=== PATIENT | female | born 1990 | race Caucasian/White ===

== ENCOUNTER 2022-07-19 00:47 | Emergency (ER) | payer MEDICAID, OTHER ==
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
[2022-07-19] MEDS ORDERED: IBUPROFEN 600 MG (MOTRIN) TAB PO ONE (01:00)
[2022-07-19 03:05] VITALS: BP 120/74
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
== END 2022-07-19 03:11 | disposition home or self-care (01) ==
LOC: ER 00:56
DX: S30.0XXA Contusion of lower back and pelvis, initial encounter (principal); M25.552 Pain in left hip; M54.6 Pain in thoracic spine; R07.89 Other chest pain; V49.50XA Passenger injured in collision with unspecified motor vehicles in traffic accident, initial encounter; Y92.410 Unspecified street and highway as the place of occurrence of the external cause
CPT/HCPCS: 71250; 72128; 72131; 74176; 84703